=== PATIENT | female | born 1970 | race Caucasian/White ===

== ENCOUNTER 2023-03-16 17:41 | Emergency (ER) | payer SELFPAY ==
[~2023-03-16] VITALS: Ht 162.6 cm; Wt 76.0 kg
[2023-03-16 17:54] VITALS: BP 163/87; PULSE 100; RESP 20; TEMP 98.3; O2SAT 97
== END 2023-03-16 18:49 ==
LOC: ER 17:41
DX: G47.00 Insomnia, unspecified (principal); I10 Essential (primary) hypertension
CPT/HCPCS: 99281